=== PATIENT | male | born 1945 | race Caucasian/White ===

== ENCOUNTER 2021-09-17 07:54 | Outpatient (CLI) | payer MEDICARE, SELFPAY ==
--- NOTE | 2021-09-17 09:30 | CT_ITS ---
WS: [id number] CT ANGIOGRAPHY OF THE ABDOMINAL AORTA WITH RUNOFF TO THE ANKLES HISTORY: M79.606 - Pain in leg, unspecified TECHNIQUE: Arterial injection is performed during imaging to evaluate the aorta and runoff vessels to the ankles. MIP and volume rendering imaging has also been performed. All images are reviewed. All C T scans at [facility] use at least one of these dose optimization techniques: automated exposu re control; mA and/or kV adjustment per patient size (includes targeted exams where dose is matched t o clinical indication); or iterative reconstruction. Contrast: Omnipaque 350; 95 mL IV. DLP: 877.64 mGy.cm COMPARISON: None available. Subpleural nodule at the RIGHT lung base measures 2.5 x 2.0 cm. Increased density centrally is probab ly calcification. There is adjacent pleural thickening. Mild enlargement of the heart. Small hiatal h ernia. Arterial enhancement of the liver, spleen and gallbladder are unremarkable. Mild atrophy of th e pancreas. No adrenal mass. Exophytic cyst from the superior pole of the RIGHT kidney measures 3.4 x 4.2 cm. No hydronephrosis or solid mass identified. No ascites or adenopathy. Abdominal aorta: Moderate calcified plaque with intimal thickening throughout the abdominal aorta. Ec centric intimal thickening throughout the aorta with moderate calcified plaque. There is a moderate s tenosis at the distal aorta extending into the bifurcation. 50% stenosis involving the proximal RIGHT common iliac artery. There is a moderate amount of calcified plaque extending into the celiac axis a nd SMA. Stenosis approximately 50%. There is a very mild hooklike deformity of the proximal celiac ax is. 50% stenosis proximal SMA. High-grade stenosis of probably greater than 60% in the proximal RIGHT renal artery. Plaque in the proximal LEFT renal artery. MAU is patent. RIGHT lower extremity arterial system: 50% stenosis involving the origin of the RIGHT common iliac ar jason. Plaque and intimal thickening in the iliac arteries. External iliac artery is patent to the fem oral artery. Small caliber internal iliac artery. Deep profunda is intact with moderate atherosclerot ic disease. There are extensive multifocal areas of [id number] stenosis throughout the common a nd superficial femoral artery. There is heavy calcification limiting evaluation for accurate stenosis calculation. There is at least 50% stenosis in the mid SFA. Multifocal areas of [id number] abdirahman nosis to Joce's canal and the popliteal artery. Very small caliber three-vessel runoff to the ankle s. Posterior tibial artery is intermittently visualized and heavily calcified. LEFT lower extremity arterial system: 50% stenosis proximal LEFT common iliac artery. Heavy calcified plaque through the iliac arteries. Intimal thickening and calcified plaque in the common femoral art ritchie. Deep profunda and SFA are patent proximally. High-grade stenosis in the mid SFA. Multi level of stenosis at the mid to distal SFA. High-grade stenosis in the proximal popliteal artery. Very small c aliber runoff to the ankle. The posterior tibial artery is not visualized in its entirety. Anterior t ibial arteries not visualized in its entirety. No GI tract obstruction. The appendix is normal. No free fluid or adenopathy. Prostate gland is enlar ged encroaching into the urinary bladder with calcification. Large hydrocele. Straightening of the normal lumbar lordosis. Advanced degenerative disc disease and osteophytosis. CT/CT angio abd aorta runof [id number] IMPRESSION: 1. No abdominal aortic aneurysm. Moderate intimal thickening and calcified julio que throughout the abdominal aorta. 2. Moderate distal abdominal aortic stenosis extending into the common iliac arteries. Proximal common iliac artery stenosis approaching 50%, RIGHT greater than LEFT. 3. 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 60% stenosis proximal RIGHT renal artery. 4. Multifocal areas of arterial stenosis in the mid to distal SFAs into the po pliteal arteries bilaterally. Stenosis approaching 50%. At least two 50% steno sis in the mid to distal LEFT SFA. 5. Poor runoff to the ankles bilaterally. Small caliber vessels. No flow ident ified within the posterior tibial arteries. 6. Mixed densities subpleural nodule at the RIGHT lung base. May be a granulom a. Recommend [address] follow-up with IV contrast.
[2021-09-17] MEDS: iodixanol 320 mg/mL 100mL Btl IV (11:17)
== END 2021-09-17 07:55 | disposition home or self-care (01) ==
LOC: RAD 07:58
PROVIDERS: PCP Family Medicine; Visit Provider Thoracic Surgery (Cardiothoracic Vascular Surgery)
DX: M79.606 Pain in leg, unspecified (principal); I35.0 Nonrheumatic aortic (valve) stenosis; R91.1 Solitary pulmonary nodule; I70.8 Atherosclerosis of other arteries
CPT/HCPCS: 75635

== ENCOUNTER → 2021-10-17 10:49 | Outpatient (BNVA) | payer MEDICARE, SELFPAY | PROVIDERS: PCP Family Medicine; Visit Provider Thoracic Surgery (Cardiothoracic Vascular Surgery) | DX: R91.1 Solitary pulmonary nodule (principal); F17.210 Nicotine dependence, cigarettes, uncomplicated; I73.9 Peripheral vascular disease, unspecified | CPT/HCPCS: 99214 ==